=== PATIENT | female | born 1995 | race Caucasian/White ===

== ENCOUNTER 2017-12-14 07:00 | Emergency (ER) | payer BC ==
[2017-12-14 07:17] VITALS: BP 122/59
--- NOTE | 2017-12-14 07:43 | UC ---
Skin Complaint HPI - HPI Summary HPI Summary: abscess right pelvic area x 3 days + swelling/ painful, red, has been draining no fever, no chills - History of Current Complaint Chief Complaint: UCGU Time Seen by Provider: 12/14/17 07:20 Stated Complaint: SKIN COMPLAINT ON PERSONAL AREA Hx Obtained From: Patient Hx Last Menstrual Period: 11/29 early November Onset/Duration: Gradual Onset, Lasting Days - 3, Still Present Timing: Constant Onset Severity: Moderate Current Severity: Moderate Pain Intensity: 0 Location: Other - right lower genital area Character: Swelling, Pain, Redness, Raised, Painful Aggravating Factor(s): Touch, Other - sitting Alleviating Factor(s): Heat Associated Signs & Symptoms: Positive: Drainage, Tenderness. Negative: Nausea, Vomiting, Numbness, Thirst, Diaphoresis, Red Streaks, Joint Swelling - Allergy/Home Medications Allergies/Adverse Reactions: Allergies Allergy/AdvReac Type Severity Reaction Status Date / Time No Known Allergies Allergy Verified 12/14/17 07:17 Home Medications: Home Medications Implanon 1 unit SUBCUT DAILY 12/14/17 [History Confirmed 12/14/17] Review of Systems Constitutional: Negative Skin: Negative Eyes: Negative ENT: Negative Respiratory: Negative Is Patient Immunocompromised?: No All Other Systems Reviewed And Are Negative: Yes PMH/Surg Hx/FS Hx/Imm Hx Previously Healthy: Yes - Surgical History Surgical History: Yes Surgery Procedure, Year, and Place: tonsils - Family History Known Family History: Negative: Diabetes - Social History Alcohol Use: Rare Substance Use Type: None Smoking Status (MU): Former Smoker Physical Exam Triage Information Reviewed: Yes Appearance: Well-Appearing, No Pain Distress, Well-Nourished Vital Signs: Initial Vital Signs Temp 99.1 F 12/14/17 07:10 Pulse 66 12/14/17 07:10 Resp 16 12/14/17 07:10 BP 122/59 12/14/17 07:10 Pulse Ox 100 12/14/17 07:10 Eyes: Positive: Conjunctiva Clear ENT Exam: Normal Neck exam: Normal Neck: Positive: Supple, Nontender, No Lymphadenopathy Respiratory: Positive: Chest non-tender, Lungs clear, Normal breath sounds Cardiovascular: Positive: RRR, No Murmur, Pulses Normal Skin: Positive: Other - abscess right genital area, + swelling, erythema , tender, + perulent drainage, Course/Dx - Diagnoses Provider Diagnoses: abscess right vaginal area Discharge - Sign-Out/Discharge Documenting (check all that apply): Discharge/Admit/Transfer - Discharge Plan Condition: Stable Disposition: HOME Prescriptions: cephALEXin [Keflex] 500 mg PO Q8H #30 capsule Patient Education Materials: Abscess (ED) Referrals: No Primary Care Phys,NOPCP [Primary Care Provider] - 7 Days - Billing Disposition and Condition Condition: STABLE Disposition: HOME
== END 2017-12-14 07:37 | disposition home or self-care (01) ==
LOC: UCCORT 07:00
DX: N76.4 Abscess of vulva (principal)
CPT/HCPCS: 87070; 87205; 99212; G0463

== ENCOUNTER 2017-12-19 14:27 | Emergency (ER) | payer BC ==
[2017-12-19 15:00] VITALS: BP 114/83
--- NOTE | 2017-12-19 15:59 | UC ---
UC General HPI - HPI Summary HPI Summary: pt states that on she had some vomiting. By Wednesday, she had vomiting and diarrhea that is very watery along with bodyaches. she improved but now has occasional nausea and vomited once plus has watery diarrhea again but only a few times daily. no fever, abdominal pain or weakness. No blood or mucous in stool. Dnenies hx sick contacts, travel hx, iBD, fever. Pt did take 2 days of keflex just before the onset of this for a skin infection but stopped it when she got ill with this. the skin infection is better. - History of Current Complaint Chief Complaint: UCGI Stated Complaint: DIARRHEA,VOMITING Time Seen by Provider: 12/19/17 15:52 Hx Obtained From: Patient Hx Last Menstrual Period: implanon Pain Intensity: 0 Aggravating: nothing Alleviating: nothing Associated Signs & Symptoms: Positive: Diarrhea, Nausea, Vomiting. Negative: Abdominal Pain, Fever, Weakness - Allergy/Home Medications Allergies/Adverse Reactions: Allergies Allergy/AdvReac Type Severity Reaction Status Date / Time No Known Allergies Allergy Verified 12/19/17 14:53 PMH/Surg Hx/FS Hx/Imm Hx Previously Healthy: Yes - Surgical History Surgical History: Yes Surgery Procedure, Year, and Place: tonsils - Family History Known Family History: Positive: None Negative: Diabetes - Social History Occupation: Employed Full-time Lives: With Family Alcohol Use: Rare Substance Use Type: None Smoking Status (MU): Never Smoked Tobacco - Immunization History Vaccination Up to Date: Yes Review of Systems Constitutional: Negative Skin: Negative Eyes: Negative ENT: Negative Respiratory: Negative Cardiovascular: Negative Gastrointestinal: Vomiting, Diarrhea, Nausea Genitourinary: Negative Motor: Negative Neurovascular: Negative Musculoskeletal: Negative Neurological: Negative Psychological: Negative Is Patient Immunocompromised?: No All Other Systems Reviewed And Are Negative: Yes Physical Exam Triage Information Reviewed: Yes Appearance: Well-Appearing Vital Signs: Initial Vital Signs Temp 98.2 F 12/19/17 14:54 Pulse 82 12/19/17 14:54 Resp 20 12/19/17 14:54 BP 114/83 12/19/17 14:54 Pulse Ox 100 12/19/17 14:54 Vital Signs Reviewed: Yes Eyes: Positive: Conjunctiva Clear ENT: Positive: Normal ENT inspection Neck: Positive: Supple, Nontender, No Lymphadenopathy Respiratory: Positive: Lungs clear, Normal breath sounds Cardiovascular: Positive: RRR, No Murmur Abdomen Description: Positive: Nontender, No Organomegaly, Soft. Negative: Distended, Guarding Bowel Sounds: Positive: Present Musculoskeletal: Positive: ROM Intact Neurological: Positive: Alert Psychological: Positive: Age Appropriate Behavior Skin Exam: Normal Course/Dx - Course Course Of Treatment: non toxic, no acute abdomen, no concern for travel related diarrhea. most likely viral; however, pt did take 4 doses of keflex prior to onset thus will check stool for c-diff colitis. no presumptive tx at this time. - Differential Dx - Multi-Symptom Provider Diagnoses: vomiting. diarrhea Discharge - Sign-Out/Discharge Documenting (check all that apply): Discharge/Admit/Transfer - Discharge Plan Condition: Stable Disposition: HOME Patient Education Materials: Acute Nausea and Vomiting (ED), Acute Diarrhea (ED ) Referrals: Gómez Wiley DO [Doctor of Osteopathy] - As Soon As Possible Additional Instructions: OBTAIN AND RETURN STOOL SAMPLE - Billing Disposition and Condition Condition: STABLE Disposition: HOME
--- NOTE | 2017-12-20 15:54 | UC ---
- Progress Note Progress Note: Pt stool reviewed Neg C diff No change Ljj 12/20/2017 Discharge - Sign-Out/Discharge Documenting (check all that apply): Post-Discharge Follow Up - Discharge Plan Condition: Stable Disposition: HOME Patient Education Materials: Acute Nausea and Vomiting (ED), Acute Diarrhea (ED ) Referrals: Gómez Wiley DO [Doctor of Osteopathy] - As Soon As Possible Additional Instructions: OBTAIN AND RETURN STOOL SAMPLE - Billing Disposition and Condition Condition: STABLE Disposition: HOME
== END 2017-12-19 16:25 | disposition home or self-care (01) ==
LOC: UCCORT 14:27
DX: R11.10 Vomiting, unspecified (principal); R19.7 Diarrhea, unspecified
CPT/HCPCS: 99211; G0463

== ENCOUNTER 2018-07-14 13:07 | Emergency (ER) | payer BC ==
[2018-07-14 13:26] VITALS: BP 119/67
--- NOTE | 2018-07-14 14:24 | UC ---
Throat Pain/Nasal Darryl HPI - HPI Summary HPI Summary: Pt c/o cough, URI like symptoms X 2 weeks. Pt also c/o bilateral ear ache. - History of Current Complaint Chief Complaint: UCRespiratory Stated Complaint: CONGESTION/ST Time Seen by Provider: 07/14/18 13:41 Hx Obtained From: Patient Hx Last Menstrual Period: 07/01/18 ?: No Onset/Duration: Gradual Onset, Lasting Weeks, Still Present Severity: Mild Pain Intensity: 0 Pain Scale Used: 0-10 Numeric Cough: Nonproductive Associated Signs & Symptoms: Positive: Nasal Discharge - Epiglottits Risk Factors Epiglottis Risk Factors: Negative - Allergies/Home Medications Allergies/Adverse Reactions: Allergies Allergy/AdvReac Type Severity Reaction Status Date / Time No Known Allergies Allergy Verified 07/14/18 13:22 PMH/Surg Hx/FS Hx/Imm Hx Previously Healthy: Yes - Surgical History Surgical History: Yes Surgery Procedure, Year, and Place: tonsils - Family History Known Family History: Positive: None Negative: Diabetes - Social History Occupation: Employed Full-time Lives: With Family Alcohol Use: None Substance Use Type: None Smoking Status (MU): Never Smoked Tobacco Have You Smoked in the Last Year: No - Immunization History Vaccination Up to Date: Yes Review of Systems All Other Systems Reviewed And Are Negative: Yes Constitutional: Positive: Negative Skin: Positive: Negative Eyes: Positive: Negative ENT: Positive: Ear Ache Respiratory: Positive: Cough Cardiovascular: Positive: Negative Gastrointestinal: Positive: Negative Genitourinary: Positive: Negative Motor: Positive: Negative Neurovascular: Positive: Negative Musculoskeletal: Positive: Negative Neurological: Positive: Negative Psychological: Positive: Negative Is Patient Immunocompromised?: No Physical Exam Triage Information Reviewed: Yes Appearance: Ill-Appearing Vital Signs: Initial Vital Signs Temp 97.8 F 07/14/18 13:22 Pulse 75 07/14/18 13:22 Resp 16 07/14/18 13:22 BP 119/67 07/14/18 13:22 Pulse Ox 99 07/14/18 13:22 Vital Signs Reviewed: Yes Eye Exam: Normal ENT Exam: Normal ENT: Positive: Nasal congestion, Other - bilateral cerumen impaction Dental Exam: Normal Neck exam: Normal Respiratory Exam: Normal Respiratory: Positive: Normal breath sounds Cardiovascular Exam: Normal Musculoskeletal Exam: Normal Neurological Exam: Normal Psychological Exam: Normal Skin Exam: Normal Throat Pain/Nasal Course/Dx - Differential Dx/Diagnosis Differential Diagnosis/HQI/PQRI: URI Provider Diagnosis: Impacted cerumen of both ears, Viral URI with cough Discharge - Sign-Out/Discharge Documenting (check all that apply): Patient Departure All imaging exams completed and their final reports reviewed: No Studies - Discharge Plan Condition: Stable Disposition: HOME Prescriptions: Guaifenesin/Pseudoephedrne HCl [Mucinex D ER 600-60 mg Tablet] 1 each PO Q12H # 14 tab.er.12h predniSONE TAB* [Deltasone 20 MG TAB*] 20 mg PO DAILY #4 tab Patient Education Materials: Cerumen Impaction (ED), Viral Syndrome (ED) Referrals: [facility] [Outside] - If Needed No Primary Care Phys,NOPCP [Primary Care Provider] - - Billing Disposition and Condition Condition: STABLE Disposition: Home - Attestation Statements Provider Attestation: I was available for consult. This patient was seen by the JESSICA. The patient was not presented to, seen by, or examined by me. -Parris
== END 2018-07-14 14:12 | disposition home or self-care (01) ==
LOC: UCCORT 13:07
DX: H61.23 Impacted cerumen, bilateral (principal); J06.9 Acute upper respiratory infection, unspecified; R05 Cough
CPT/HCPCS: 99212; G0463

== ENCOUNTER 2019-09-02 18:13 | Emergency (ER) | payer BC ==
[2019-09-02 18:48] VITALS: BP 116/78
[2019-09-02 19:01] LABS: Influenza B Molecular POSITIVE (Negative)
--- NOTE | 2019-09-02 19:08 | UC ---
UC General HPI - HPI Summary HPI Summary: started with body aches, chills, productive cough, headaches,sore throat x2 days. did not get flu shot this year. sick contacts at work. - History of Current Complaint Chief Complaint: UCGeneralIllness Stated Complaint: BODY ACHES/CHILLS/COUGH/CONGESTION Time Seen by Provider: 09/02/19 19:02 Hx Obtained From: Patient Hx Last Menstrual Period: 07/01/18 Pain Intensity: 5 - Allergy/Home Medications Allergies/Adverse Reactions: Allergies Allergy/AdvReac Type Severity Reaction Status Date / Time No Known Allergies Allergy Verified 09/02/19 18:48 Home Medications: Home Medications NK [No Home Medications Reported] 09/02/19 [History Confirmed 09/02/19] PMH/Surg Hx/FS Hx/Imm Hx Previously Healthy: Yes - Surgical History Surgical History: Yes Surgery Procedure, Year, and Place: tonsils - Family History Known Family History: Positive: None Negative: Diabetes - Social History Alcohol Use: Occasionally Substance Use Type: None Smoking Status (MU): Never Smoked Tobacco Have You Smoked in the Last Year: No - Immunization History Vaccination Up to Date: Yes Review of Systems All Other Systems Reviewed And Are Negative: Yes Constitutional: Positive: Fever, Chills, Fatigue Skin: Negative: Rash ENT: Positive: Sore Throat Respiratory: Positive: Cough. Negative: Shortness Of Breath Gastrointestinal: Negative: Vomiting, Nausea Musculoskeletal: Positive: Myalgia. Negative: Edema Neurological: Positive: Headache. Negative: Weakness Physical Exam Triage Information Reviewed: Yes Appearance: Well-Appearing Vital Signs: Initial Vital Signs Temp 98.8 F 09/02/19 18:44 Pulse 86 09/02/19 18:44 Resp 18 09/02/19 18:44 BP 116/78 09/02/19 18:44 Pulse Ox 100 09/02/19 18:44 Vital Signs Reviewed: Yes Eyes: Positive: Conjunctiva Clear ENT: Positive: Pharyngeal erythema, TMs normal, Uvula midline Neck: Positive: Supple, Nontender, No Lymphadenopathy Respiratory Exam: Normal Cardiovascular Exam: Normal Neurological: Positive: Alert Skin: Negative: Rashes Course/Dx - Course Course Of Treatment: flu like illness x2 days in a pt. who did not get the flu shot. rapid flu +, rapid strep neg. on exam there was erythematous throat. no abnormal lung sounds. good vitals. conservative tx. - Differential Dx - Multi-Symptom Differential Diagnoses: Other - Diagnoses Provider Diagnosis: Influenza Discharge ED - Sign-Out/Discharge Documenting (check all that apply): Patient Departure All imaging exams completed and their final reports reviewed: No Studies - Discharge Plan Condition: Good Disposition: HOME Patient Education Materials: Influenza (DC) Referrals: No Primary Care Phys,NOPCP [Primary Care Provider] - Additional Instructions: if worsening please return - Billing Disposition and Condition Condition: GOOD Disposition: Home
== END 2019-09-02 19:13 | disposition home or self-care (01) ==
LOC: UCCORT 18:13
DX: J11.1 Influenza due to unidentified influenza virus with other respiratory manifestations (principal)
CPT/HCPCS: 87651; 99211; G0463

== ENCOUNTER 2019-09-17 10:14 | Emergency (ER) | payer BC ==
[2019-09-17 12:22] VITALS: BP 120/71
[2019-09-17] MEDS ORDERED: Tetracaine 0.5% OPTH.SOL 4 ML* 1 DROP BTL RIGHT EYE ONE (12:35)
[2019-09-17] MEDS ORDERED: Fluorescein Sodium TOPICAL* 1 MG TEST STRIP OPHTHALMIC ONE (12:36)
[2019-09-17] MEDS ORDERED: BSS OPTH.SOL* BTL OPHTHALMIC ONE (12:36)
--- NOTE | 2019-09-17 12:41 | UC ---
Eye Complaint HPI - HPI Summary HPI Summary: poked her right eye with an eye lash curler yesterday--- today had eye pain, injected sclera and clear drainage-- - History of Current Complaint Chief Complaint: UCEye Stated Complaint: RIGHT EYE Time Seen by Provider: 09/17/19 12:22 Hx Obtained From: Patient Hx Last Menstrual Period: 07/01/18 ?: No Onset/Duration: Sudden Onset, Lasting Days - 1 Timing: Constant Pain Intensity: 5 Pain Scale Used: 0-10 Numeric Location of Injury: Conjunctiva Character: Foreign Body Sensation Aggravating Factor(s): Ultraviolet Exposure Associated Signs And Symptoms: Positive: Drainage (Clear) - Allergies/Home Medications Allergies/Adverse Reactions: Allergies Allergy/AdvReac Type Severity Reaction Status Date / Time No Known Allergies Allergy Verified 09/17/19 12:22 PMH/Surg Hx/FS Hx/Imm Hx Previously Healthy: Yes - Surgical History Surgical History: Yes Surgery Procedure, Year, and Place: tonsils - Family History Known Family History: Positive: None Negative: Diabetes - Social History Occupation: Employed Full-time Lives: With Family Alcohol Use: Occasionally Substance Use Type: None Smoking Status (MU): Never Smoked Tobacco Have You Smoked in the Last Year: No - Immunization History Vaccination Up to Date: Yes Review of Systems All Other Systems Reviewed And Are Negative: Yes Constitutional: Positive: Negative Skin: Positive: Rash Eyes: Positive: Drainage - clear from right eye, Eye Redness - right ENT: Positive: Negative Respiratory: Positive: Negative Cardiovascular: Positive: Negative Gastrointestinal: Positive: Negative Genitourinary: Positive: Negative Motor: Positive: Negative Neurovascular: Positive: Negative Musculoskeletal: Positive: Negative Neurological/Mental Status: Positive: Negative Psychological: Positive: Negative Is Patient Immunocompromised?: No Physical Exam Triage Information Reviewed: Yes Appearance: Well-Appearing, Well-Nourished, Pain Distress - mild Vital Signs: Initial Vital Signs Temp 98.7 F 09/17/19 12:19 Pulse 93 09/17/19 12:19 Resp 18 09/17/19 12:19 BP 120/71 09/17/19 12:19 Pulse Ox 100 09/17/19 12:19 Vital Signs Reviewed: Yes Eye Exam: Normal Eyes: Positive: Conjunctiva Clear - left, Conjunctiva Inflamed - right, Discharge - clear from right eye ENT Exam: Normal ENT: Positive: Normal ENT inspection, Hearing grossly normal. Negative: Nasal drainage, Trismus, Muffled voice, Hoarse voice Dental Exam: Normal Neck exam: Normal Neck: Positive: Supple, Nontender Respiratory Exam: Normal Respiratory: Positive: Chest non-tender, No respiratory distress, No accessory muscle use Cardiovascular Exam: Normal Cardiovascular: Positive: RRR, Pulses Normal, Brisk Capillary Refill Musculoskeletal Exam: Normal Musculoskeletal: Positive: Strength Intact, ROM Intact, No Edema Neurological Exam: Normal Neurological: Positive: Alert, Muscle Tone Normal Psychological Exam: Normal Skin Exam: Normal Procedures - Eye Procedure Right Alcaine Drops Administered: Yes Eye FB Removal: other - no fb noted does have a corneal abrasion at 6 o'clock after ful. stain Antibiotic Ointment/Drps Admin: right eye Re-Evaluation - Re-Evaluation First Eval Change: Improved - patient tolerated well Eye Complaint Course/Dx - Course Course Of Treatment: tylenol, ibuprofen for pain--polytrim eye drops follow with Dr. Fiona arguello - Differential Dx/Diagnosis Provider Diagnosis: Corneal abrasion, right Discharge ED - Sign-Out/Discharge Documenting (check all that apply): Patient Departure All imaging exams completed and their final reports reviewed: No Studies - Discharge Plan Condition: Stable Disposition: HOME Prescriptions: Polymyx/Trimethoprim OPTH* [Polytrim OPHTH*] 1 drop RIGHT EYE Q3H #1 btl Patient Education Materials: Corneal Abrasion (ED), How to Use Eye Drops (ED) Referrals: Aiden Jaimes MD [Medical Doctor] - If Needed - Billing Disposition and Condition Condition: STABLE Disposition: Home
== END 2019-09-17 13:04 | disposition home or self-care (01) ==
LOC: UCCORT 10:14
DX: S05.01XA Injury of conjunctiva and corneal abrasion without foreign body, right eye, initial encounter (principal); W22.8XXA Striking against or struck by other objects, initial encounter; Y92.9 Unspecified place or not applicable
CPT/HCPCS: 99212; A9270-GY; G0463